=== PATIENT | male | born 1975 | race Caucasian/White ===

== ENCOUNTER 2023-08-12 20:39 | Emergency (ER) | payer SELFPAY ==
[2023-08-12 20:42] VITALS: BP 182/109; PULSE 127; RESP 22; TEMP 36.9; O2SAT 98; BMI 24.3
[2023-08-12 21:16] LABS: Add Manual Diff / Slide Review NO; Basophils Absolute Auto 100 /uL (0-100); Basophils Percent Auto 0.3 % (0-2); Eosinophils Absolute Auto 0 /uL (0-450); Eosinophils Percent Auto 0.1 % (2-4); Hematocrit 52.6 % (41-53); Hemoglobin 17.8 g/dL (13.5-17.5); Lymphocytes Absolute Auto 1800 /uL (1100-4500); Lymphocytes Percent Auto 8.6 % (25-40); Mean Corpuscular HGB Conc 33.8 % (30-36); Mean Corpuscular Hemoglobin 30.8 PG (26-34); Mean Corpuscular Volume 91.3 fL (80-100); Monocytes Absolute Auto 1100 /uL (0-900); Monocytes Percent Auto 5.3 % (3-14); Neutrophils Absolute Auto 18000 /uL (1500-7000); Neutrophils Percent Auto 85.7 % (50-75); Platelet Count 326 X10^3/uL (150-400); Red Blood Cell Count 5.76 X10^6/uL (4.5-5.9); Red Cell Distribution Width 14.1 % (11.6-14.8); White Blood Cell Count 20.9 X10^3/uL (4.5-11.0)
[2023-08-12 21:20] LABS: Alanine Aminotransferase 30 IU/L (<50); Albumin 5.7 g/dL (3.5-5.0); Alkaline Phosphatase 90 U/L (38-126); Aspartate Aminotransferase 41 IU/L (17-59); BUN Creatinine Ratio 9.6 (6-22); Bilirubin Total 1.5 mg/dL (0.2-1.3); Blood Urea Nitrogen 42 mg/dL (9-20); Carbon Dioxide 18 mmol/L (22-32); Chloride 100 mmol/L (98-107); Estimated Glomerular Filt Rate 16 mL/min (>60); Glucose 175 mg/dL (70-100); HEMOLYSIS < 15 (0-50); Lipase 77 U/L (23-300); Potassium 3.3 mmol/L (3.4-5.1); Sodium 138 mmol/L (137-145)
[2023-08-12 21:27] LABS: Albumin Globulin Ratio 1.2 (1.0-2.8); Globulin 4.8 g/dL (1.7-4.1); Total Protein 10.5 g/dL (6.3-8.2)
[2023-08-12 22:01] VITALS: BP 193/98; PULSE 110; RESP 19; O2SAT 98
[2023-08-12] MEDS: ONDANSETRON 4 MG/2 ML INJ IV (22:13)
[2023-08-12] MEDS: SODIUM CHLORIDE 0.9% 1,000 ML 1000 ML IV (22:18)
--- NOTE | 2023-08-12 22:18 | DI.CT.S_ITS ---
PROCEDURE: CT ABDOMEN PELVIS WO CON INDICATIONS: vomiting hernia TECHNIQUE: Axial sections were acquired from the lung bases to the pubic symphysis. Coronal and sagittal reformats were performed. For radiation dose reduction, the following was used: automated exposure control, adjustment of mA and/or kV according to patient size. COMPARISON: None. FINDINGS: Image quality: Diagnostic Lower chest: Unremarkable. possible small Bochdalek's containing hernias. Mildly patulous distal esophagus is nonspecific Liver: No contour deforming mass. Lack of IV contrast limits evaluation of the solid organs Gallbladder and biliary system: Unremarkable, nondilated Pancreas: No ductal dilation Spleen: Nonenlarged Adrenals: No discrete nodules Kidneys: No contour deforming mass or hydronephrosis. No obstructing calcified stone. Vessels and lymph nodes: No abdominal aortic aneurysm. No pathologic lymph nodes by size criteria. Bowel and peritoneum: No evidence of small bowel obstruction. No pathologic ascites. Body wall: Qwhn-[id number] bilateral fat containing inguinal hernias, with no obstructed bowel seen currently Pelvis: Bladder is under distended and not well evaluated. The prostate is also not well evaluated on this study Bones: No acute or suspicious osseous findings. There are degenerative changes. IMPRESSION: Bilateral fat containing inguinal hernias, no obstructive bowel is seen on this non dynamic study. Other findings above. Dictated by: Jose L Garcia M.D. on 08/12/2023 at 23:19 Approved by: Jose L Garcia M.D. on 08/12/2023 at 23:22
[2023-08-12 22:32] LABS: Lactate (Lactic Acid) 2.1 mmol/L (0.7-2.1)
--- NOTE | 2023-08-12 22:39 | ED_ITS ---
HPI - Nausea/Vomiting/Diarrhea General Chief complaint: Nausea/Vomiting/Diarrhea Stated complaint: N/V T-2/states enlarged hernia Time Seen by Provider: 08/12/23 22:18 Source: patient Mode of arrival: Ambulatory History of Present Illness HPI Narrative: Patient is a 48-year-old male without significant past known history presenting today with nausea vomiting. He reports that he threw up most day yesterday. He did feel like he had a right inguinal hernias at pops out when she is able to push back in. He has had significant decrease in urination. He does admit to doing cocaine and mushrooms. He admits to drinking alcohol but does not drink daily only drinks occasionally on the weekends. He reports that he went on a hike and did some mushrooms which again is not abnormal for him. He denies any sort of chest pain but has burning. No palpitations. He does have pretty significant abdominal pain. Related Data Allergies Allergy/AdvReac Type Severity Reaction Status Date / Time No Known Drug Allergies Allergy Verified 08/12/23 20:49 Patient History Social History Smoking Status: Current every day smoker Smoking Status: Current every day smoker tobacco type: cigarettes alcohol intake frequency: 0-2 drinks per day Substance Use Type: marijuana Exam Initial Vital Signs Initial Vital Signs: Vital Signs Temperature 98.5 F 08/12/23 20:42 Pulse Rate 127 H 08/12/23 20:42 Respiratory Rate 22 08/12/23 20:42 Blood Pressure 182/109 H 08/12/23 20:42 Pulse Oximetry 98 08/12/23 20:42 Oxygen Delivery Method Room Air 08/12/23 20:42 GENERAL: Alert 48-year-old male appears to not feel well and in [no acute] distress. HEENT: Head atraumatic,EOMI, pupils reactive, face symmetric, [moist] mucous membranes CARDIOVASCULAR: Regular rate and rhythm without murmurs, rubs or gallops. RESPIRATORY: Breath sounds equal bilaterally, no wheezes rales or rhonchi. ABDOMEN: Soft, nontender. Normoactive bowel sounds all 4 quadrants. No guarding or rebound. Right inguinal hernia reducible EXTREMITIES: Normal range of motion, no clubbing or edema. Neurovascularly intact NEUROLOGICAL: Alert and oriented x4.Normal gait and speech. Cranial nerves II through XII grossly intact. SKIN: Warm, dry, no laceration, no petechiae, no rashes or lesions. Course Orders Ordered: ED Orders 08/12/23 22:47 Urine Drug Screen, Rapid Stat EKG-12 Lead Stat 08/12/23 23:40 BMP [Basic Metabolic Panel] Stat PTT Partial Thromboplastin Jim Q6H Troponin & CK Cardiac Panel Stat 08/13/23 00:38 EKG-12 Lead Stat 08/13/23 02:56 Ictotest Urine Stat Urine Microscopic Stat 08/13/23 06:01 CMP [Comprehensive Metabolic Panel] Stat Hemoglobin and Hematocrit DAILY PTT Partial Thromboplastin Jim Q6H Platelet Count DAILY Troponin & CK Cardiac Panel Stat 08/13/23 06:23 Chest [XR chest 1V] Stat 08/13/23 11:30 PTT Partial Thromboplastin Jim Q6H 08/13/23 17:30 PTT Partial Thromboplastin Jim Q6H 08/14/23 05:00 Hemoglobin and Hematocrit DAILY Platelet Count DAILY Hydromorphone HCl (Hydromorphone 1 Mg Inj) 1 mg IV Q2HR PRN PRN Reason: Pain, Moderate (4-6) Last Admin: 08/13/23 07:15 Dose: 1 mg Documented By: Admin: 08/13/23 02:59 Dose: 1 mg Documented By: JOHN Heparin Sodium/Dextrose (Heparin Drip) 25,000 unit in 500 mls @ 17.418 mls/hr IV CONT KIERA; Protocol Last Titration: 08/13/23 06:57 Dose: 13 units/kg/hr, 18.87 mls/hr Documented By: JOHN Co-signed By: AB Admin: 08/12/23 23:56 Dose: 12 units/kg/hr, 17.418 mls/hr Documented By: JOHN Co-signed By: Sodium Chloride (Normal Saline 0.9%) 1,000 mls @ 150 mls/hr IV CONT KIERA Last Infusion: 08/13/23 06:45 Dose: Infused Documented By: Admin: 08/12/23 23:56 Dose: 150 mls/hr Documented By: JOHN Sodium Chloride (Normal Saline 0.9%) 1,000 mls @ 150 mls/hr IV CONT KIERA Last Admin: 08/13/23 07:10 Dose: 150 mls/hr Documented By: JOHN Nitroglycerin (Nitroglycerin 0.4 Mg Sl Tab) 0.4 mg SL [id number] PRN PRN Reason: Chest Pain Last Admin: 08/13/23 03:06 Dose: 0.4 mg Documented By: Admin: 08/13/23 02:36 Dose: 0.4 mg Documented By: Ondansetron HCl (Ondansetron 4 Mg/2 Ml Inj) 4 mg IV NOW PRN PRN Reason: Nausea And Vomiting Last Admin: 08/12/23 22:13 Dose: 4 mg Documented By: SYEDA Ondansetron HCl (Ondansetron 4 Mg Odt) 4 mg PO NOW PRN PRN Reason: Nausea And Vomiting Last Admin: 08/13/23 07:15 Dose: 4 mg Documented By: JOHN Discontinued Medications Aspirin (Aspirin 81 Mg Chew Tab) 324 mg PO NOW ONE Stop: 08/12/23 23:26 Last Admin: 08/12/23 23:55 Dose: 324 mg Documented By: JOHN Heparin Sodium (Porcine) (Heparin 5,000 Unit/Ml Vial) 4,500 unit 60 unit/kg (4500 unit) IV NOW ONE Stop: 08/12/23 23:26 Last Admin: 08/12/23 23:56 Dose: 4,500 unit Documented By: JOHN Heparin Sodium (Porcine) (Heparin 5,000 Unit/Ml Vial) 2,500 unit IV NOW ONE Stop: 08/13/23 06:52 Last Admin: 08/13/23 06:56 Dose: 2,500 unit Documented By: JOHN Hydromorphone HCl (Hydromorphone 0.5 Mg Inj) 0.5 mg IV NOW ONE Stop: 08/12/23 22:48 Last Admin: 08/12/23 23:09 Dose: 0.5 mg Documented By: JOHN Hydromorphone HCl (Hydromorphone 1 Mg Inj) 1 mg IV NOW ONE Stop: 08/13/23 07:03 Last Admin: 08/13/23 07:04 Dose: Not Given Documented By: JOHN Sodium Chloride (Normal Saline 0.9%) 1,000 mls @ 1,000 mls/hr IV BOLUS ONE Stop: 08/12/23 23:16 Last Infusion: 08/12/23 23:18 Dose: Infused Documented By: Admin: 08/12/23 22:18 Dose: 1,000 mls/hr Documented By: SYEDA Pantoprazole Sodium (Pantoprazole 40 Mg Vial) 40 mg IV NOW ONE Stop: 08/12/23 22:48 Last Admin: 08/12/23 23:09 Dose: 40 mg Documented By: JOHN Vital Signs Vital signs: Vital Signs - 8 hr 08/12/23 23:30 08/12/23 23:31 08/12/23 23:31 Pulse Rate 88 98 H Respiratory Rate 16 20 Blood Pressure 182/105 H Pulse Oximetry 96 96 Oxygen Delivery Method 08/13/23 00:00 08/13/23 00:00 08/13/23 00:30 Pulse Rate 86 Respiratory Rate 32 H Blood Pressure 195/105 H 188/118 H Pulse Oximetry 95 Oxygen Delivery Method 08/13/23 00:30 08/13/23 01:00 08/13/23 01:00 Pulse Rate 74 78 Respiratory Rate 28 H 29 H Blood Pressure 191/91 H Pulse Oximetry 96 95 Oxygen Delivery Method 08/13/23 01:30 08/13/23 01:30 08/13/23 02:00 Pulse Rate 85 81 Respiratory Rate 35 H 22 Blood Pressure 197/118 H Pulse Oximetry 97 94 Oxygen Delivery Method 08/13/23 02:00 08/13/23 02:30 08/13/23 02:31 Pulse Rate 92 H Respiratory Rate 16 Blood Pressure 188/95 H 258/129 H Pulse Oximetry 97 Oxygen Delivery Method 08/13/23 02:31 08/13/23 02:36 08/13/23 02:56 Pulse Rate 96 H 87 Respiratory Rate 24 Blood Pressure 258/129 H 262/152 H Pulse Oximetry 97 Oxygen Delivery Method 08/13/23 02:56 08/13/23 03:00 08/13/23 03:00 Pulse Rate 89 88 Respiratory Rate 13 17 Blood Pressure 259/145 H Pulse Oximetry 99 98 Oxygen Delivery Method 08/13/23 03:06 08/13/23 03:12 08/13/23 03:12 Pulse Rate 81 85 Respiratory Rate 12 Blood Pressure 259/145 H 217/111 H Pulse Oximetry 95 Oxygen Delivery Method Room Air 08/13/23 03:15 08/13/23 03:15 08/13/23 03:20 Pulse Rate 75 Respiratory Rate 32 H Blood Pressure 221/103 H 169/84 H Pulse Oximetry 91 Oxygen Delivery Method 08/13/23 03:20 08/13/23 03:25 08/13/23 03:25 Pulse Rate 87 85 Respiratory Rate 18 21 Blood Pressure 163/82 H Pulse Oximetry 94 96 Oxygen Delivery Method 08/13/23 03:30 08/13/23 03:30 08/13/23 03:35 Pulse Rate 71 Respiratory Rate 25 H Blood Pressure 166/77 H 169/79 H Pulse Oximetry 95 Oxygen Delivery Method 08/13/23 03:35 08/13/23 03:40 08/13/23 03:40 Pulse Rate 67 69 Respiratory Rate 30 H 29 H Blood Pressure 152/74 H Pulse Oximetry 94 95 Oxygen Delivery Method 08/13/23 03:45 08/13/23 03:45 08/13/23 03:50 Pulse Rate 69 76 Respiratory Rate 31 H 29 H Blood Pressure 155/80 H Pulse Oximetry 95 95 Oxygen Delivery Method 08/13/23 03:50 08/13/23 03:55 08/13/23 03:55 Pulse Rate 67 Respiratory Rate 30 H Blood Pressure 153/77 H 166/80 H Pulse Oximetry 96 Oxygen Delivery Method 08/13/23 04:00 08/13/23 04:00 08/13/23 04:05 Pulse Rate 63 71 Respiratory Rate 32 H 25 H Blood Pressure 141/75 H Pulse Oximetry 96 96 Oxygen Delivery Method 08/13/23 04:05 08/13/23 04:10 08/13/23 04:10 Pulse Rate 66 Respiratory Rate 32 H Blood Pressure 141/80 H 152/81 H Pulse Oximetry 95 Oxygen Delivery Method 08/13/23 04:15 08/13/23 04:15 08/13/23 04:20 Pulse Rate 66 68 Respiratory Rate 24 25 H Blood Pressure 150/79 H Pulse Oximetry 96 96 Oxygen Delivery Method 08/13/23 04:20 08/13/23 04:25 08/13/23 04:25 Pulse Rate 67 Respiratory Rate 26 H Blood Pressure 156/86 H 164/85 H Pulse Oximetry 95 Oxygen Delivery Method 08/13/23 04:30 08/13/23 04:30 08/13/23 04:35 Pulse Rate 74 Respiratory Rate 19 Blood Pressure 166/90 H 156/82 H Pulse Oximetry 95 Oxygen Delivery Method 08/13/23 04:35 08/13/23 04:40 08/13/23 04:40 Pulse Rate 64 62 Respiratory Rate 31 H 34 H Blood Pressure 151/81 H Pulse Oximetry 96 95 Oxygen Delivery Method 08/13/23 04:45 08/13/23 04:45 08/13/23 04:50 Pulse Rate 74 Respiratory Rate Blood Pressure 173/91 H 159/81 H Pulse Oximetry 95 Oxygen Delivery Method 08/13/23 04:50 08/13/23 04:55 08/13/23 04:55 Pulse Rate 56 L 55 L Respiratory Rate 42 H 29 H Blood Pressure 167/84 H Pulse Oximetry 96 96 Oxygen Delivery Method 08/13/23 05:00 08/13/23 05:00 08/13/23 05:05 Pulse Rate 57 L Respiratory Rate 31 H Blood Pressure 164/89 H 162/81 H Pulse Oximetry 96 Oxygen Delivery Method 08/13/23 05:05 08/13/23 05:10 08/13/23 05:10 Pulse Rate 59 L 58 L Respiratory Rate 26 H 32 H Blood Pressure 161/84 H Pulse Oximetry 96 96 Oxygen Delivery Method 08/13/23 05:15 08/13/23 05:15 08/13/23 05:21 Pulse Rate 57 L Respiratory Rate 24 Blood Pressure 169/92 H 152/84 H Pulse Oximetry 96 Oxygen Delivery Method 08/13/23 05:21 08/13/23 05:25 08/13/23 05:25 Pulse Rate 53 L 55 L Respiratory Rate 31 H 31 H Blood Pressure 155/86 H Pulse Oximetry 96 96 Oxygen Delivery Method 08/13/23 05:30 08/13/23 05:30 08/13/23 05:35 Pulse Rate 54 L Respiratory Rate 36 H Blood Pressure 166/87 H 181/92 H Pulse Oximetry 96 Oxygen Delivery Method 08/13/23 05:35 08/13/23 05:40 08/13/23 05:40 Pulse Rate 61 55 L Respiratory Rate 25 H 41 H Blood Pressure 159/82 H Pulse Oximetry 95 96 Oxygen Delivery Method 08/13/23 05:46 08/13/23 05:46 08/13/23 05:50 Pulse Rate 59 L Respiratory Rate 28 H Blood Pressure 169/86 H 160/102 H Pulse Oximetry 96 Oxygen Delivery Method 08/13/23 05:50 08/13/23 05:55 08/13/23 05:55 Pulse Rate 69 61 Respiratory Rate 24 36 H Blood Pressure 182/91 H Pulse Oximetry 96 96 Oxygen Delivery Method 08/13/23 06:00 08/13/23 06:00 08/13/23 06:05 Pulse Rate 57 L Respiratory Rate 38 H Blood Pressure 190/99 H 199/99 H Pulse Oximetry 96 Oxygen Delivery Method 08/13/23 06:05 08/13/23 06:10 08/13/23 06:10 Pulse Rate 65 73 Respiratory Rate 32 H 32 H Blood Pressure 205/103 H Pulse Oximetry 98 97 Oxygen Delivery Method 08/13/23 06:15 08/13/23 06:15 08/13/23 06:20 Pulse Rate 58 L Respiratory Rate 17 Blood Pressure 200/95 H 209/102 H Pulse Oximetry 97 Oxygen Delivery Method 08/13/23 06:20 08/13/23 06:25 08/13/23 06:25 Pulse Rate 76 60 Respiratory Rate 31 H 22 Blood Pressure 207/115 H Pulse Oximetry 98 98 Oxygen Delivery Method 08/13/23 06:30 08/13/23 06:30 08/13/23 06:35 Pulse Rate 65 Respiratory Rate 15 Blood Pressure 211/98 H 227/117 H Pulse Oximetry 98 Oxygen Delivery Method 08/13/23 06:35 08/13/23 06:40 08/13/23 06:40 Pulse Rate 61 66 Respiratory Rate 28 H 16 Blood Pressure 207/96 H Pulse Oximetry 95 96 Oxygen Delivery Method 08/13/23 06:45 08/13/23 06:45 08/13/23 06:50 Pulse Rate 76 Respiratory Rate 35 H Blood Pressure 195/102 H 206/99 H Pulse Oximetry 97 Oxygen Delivery Method 08/13/23 06:50 08/13/23 06:55 08/13/23 06:55 Pulse Rate 65 78 Respiratory Rate 34 H 28 H Blood Pressure 200/108 H Pulse Oximetry 97 97 Oxygen Delivery Method 08/13/23 07:00 08/13/23 07:00 Pulse Rate 63 Respiratory Rate 38 H Blood Pressure 199/111 H Pulse Oximetry 98 Oxygen Delivery Method MDM - Nausea/Vomiting/Diarrhea Lab Data 08/13/23 06:01 08/13/23 06:01 Labs: Lab Results 08/12/23 08/12/23 08/12/23 Range/Units 21:00 21:07 23:40 WBC 20.9 H (4.5-11.0) X10^3/uL RBC 5.76 (4.5-5.9) X10^6/uL Hgb 17.8 H (13.5-17.5) g/dL Hct 52.6 (41-53) % MCV 91.3 (80-100) fL MCH 30.8 (26-34) PG MCHC 33.8 (30-36) % RDW 14.1 (11.6-14.8) % Plt Count 326 (150-400) X10^3/uL Neut % (Auto) 85.7 H (50-75) % Lymph % (Auto) 8.6 L (25-40) % [place] % (Auto) 5.3 (3-14) % Eos % (Auto) 0.1 L (2-4) % Baso % (Auto) 0.3 (0-2) % Neut # (Auto) 54033 H (9640-3949) /uL Lymph # (Auto) 1800 (7296-2161) /uL [place] # (Auto) 1100 H (0-900) /uL Eos # (Auto) 0 (0-450) /uL Baso # (Auto) 100 (0-100) /uL APTT 35 (25.1-36.5) SECONDS Sodium 138 138 (137-145) mmol/L Potassium 3.3 L 3.4 (3.4-5.1) mmol/L Chloride 100 105 (98-107) mmol/L Carbon Dioxide 18 L 17 L (22-32) mmol/L BUN 42 H 43 H (9-20) mg/dL Creatinine 4.36 H 3.88 H (0.66-1.25) mg/dL Estimated GFR 16 L 18 L (>60) mL/min BUN/Creatinine Ratio 9.6 11.1 (6-22) Glucose 175 H 143 H (70-100) mg/dL Lactate 2.1 1.6 (0.7-2.1) mmol/L Calcium 11.0 H 9.6 (8.4-10.2) mg/dL Total Bilirubin 1.5 H (0.2-1.3) mg/dL AST 41 (17-59) IU/L ALT 30 (<50) IU/L Alkaline Phosphatase 90 (38-126) U/L Total Creatine Kinase 801 H 791 H (55-170) U/L Troponin I 1.130 H* 0.942 H* (0.01-0.034) ng/mL Total Protein 10.5 H (6.3-8.2) g/dL Albumin 5.7 H (3.5-5.0) g/dL Globulin 4.8 H (1.7-4.1) g/dL Albumin/Globulin Ratio 1.2 (1.0-2.8) Lipase 77 (23-300) U/L Procalcitonin 0.292 (<0.5) ng/mL Ur Bilirubin Confirm (Negative) Urine RBC (0-5/HPF) Urine WBC (0-5/HPF) Ur Squamous Epith Cells (0-5/HPF) Amorphous Sediment Urine Bacteria (None) Hyaline Casts (None) Ur Culture Indicated? Vol Urine Centrifuged U Opiates 300ng/mL cut (Negative) Ur Oxycodone Screen (Negative) Urine Methadone Screen (Negative) Ur Barbiturates Screen (Negative) U Tricyclic Antidepress (Negative) Ur Phencyclidine Scrn (Negative) Ur Amphetamines Screen (Negative) U Methamphetamines Scrn (Negative) Ur MDMA Scrn (Ecstasy) (Negative) U Benzodiazepines Scrn (Negative) Urine Cocaine Screen (Negative) U Marijuana (THC) Screen (Negative) Urine pH (Normal) Urine Specific Lane (Normal) Ur Creatinine (Normal) 08/13/23 08/13/23 Range/Units 02:56 06:01 WBC (4.5-11.0) X10^3/uL RBC (4.5-5.9) X10^6/uL Hgb 15.0 (13.5-17.5) g/dL Hct 44.6 (41-53) % MCV (80-100) fL MCH (26-34) PG MCHC (30-36) % RDW (11.6-14.8) % Plt Count 242 (150-400) X10^3/uL Neut % (Auto) (50-75) % Lymph % (Auto) (25-40) % [place] % (Auto) (3-14) % Eos % (Auto) (2-4) % Baso % (Auto) (0-2) % Neut # (Auto) (2247-4028) /uL Lymph # (Auto) (1408-7374) /uL [place] # (Auto) (0-900) /uL Eos # (Auto) (0-450) /uL Baso # (Auto) (0-100) /uL APTT 45 H D (25.1-36.5) SECONDS Sodium 137 (137-145) mmol/L Potassium 3.8 (3.4-5.1) mmol/L Chloride 107 (98-107) mmol/L Carbon Dioxide 19 L (22-32) mmol/L BUN 45 H (9-20) mg/dL Creatinine 3.28 H (0.66-1.25) mg/dL Estimated GFR 22 L (>60) mL/min BUN/Creatinine Ratio 13.7 (6-22) Glucose 124 H (70-100) mg/dL Lactate (0.7-2.1) mmol/L Calcium 8.7 (8.4-10.2) mg/dL Total Bilirubin 0.9 (0.2-1.3) mg/dL AST 33 (17-59) IU/L ALT 20 (<50) IU/L Alkaline Phosphatase 63 (38-126) U/L Total Creatine Kinase 715 H (55-170) U/L Troponin I 1.040 H* (0.01-0.034) ng/mL Total Protein 7.7 (6.3-8.2) g/dL Albumin 4.5 (3.5-5.0) g/dL Globulin 3.2 (1.7-4.1) g/dL Albumin/Globulin Ratio 1.4 (1.0-2.8) Lipase (23-300) U/L Procalcitonin (<0.5) ng/mL Ur Bilirubin Confirm Negative (Negative) Urine RBC 1-5/hpf (0-5/HPF) Urine WBC None seen (0-5/HPF) Ur Squamous Epith Cells 1-5 /hpf (0-5/HPF) Amorphous Sediment 1+ Urine Bacteria None seen (None) Hyaline Casts 1-5/lpf (None) Ur Culture Indicated? Cult not indicated Vol Urine Centrifuged 10ml (spun) U Opiates 300ng/mL cut Negative (Negative) Ur Oxycodone Screen Negative (Negative) Urine Methadone Screen Negative (Negative) Ur Barbiturates Screen Negative (Negative) U Tricyclic Antidepress Negative (Negative) Ur Phencyclidine Scrn Negative (Negative) Ur Amphetamines Screen Negative (Negative) U Methamphetamines Scrn Negative (Negative) Ur MDMA Scrn (Ecstasy) Negative (Negative) U Benzodiazepines Scrn Negative (Negative) Urine Cocaine Screen Negative (Negative) U Marijuana (THC) Screen Positive H (Negative) Urine pH Normal (Normal) Urine Specific Lane Normal (Normal) Ur Creatinine Normal (Normal) Urine Dip Bedside Urine Glucose Negative Bedside Urine Bilirubin + 1 Bedside Urine Ketone +/- [address] 1.030 Bedside Urine Occult Blood ++ Bedside Urine pH 5.0 Bedside Urine Protein +++ 300 Bedside Urine Urobilinogen - Negative Bedside Urine Nitrite - Negative Bedside Urine Leukocytes - Negative Esterase Imaging Data CT scan - abdomen/pelvis: Radiologist's Impression: PROCEDURE: CT ABDOMEN PELVIS WO CON INDICATIONS: vomiting hernia TECHNIQUE: Axial sections were acquired from the lung bases to the pubic symphysis. Coronal and sagittal reformats were performed. For radiation dose reduction, the following was used: automated exposure control, adjustment of mA and/or kV according to patient size. COMPARISON: None. FINDINGS: Image quality: Diagnostic Lower chest: Unremarkable. possible small Bochdalek's containing hernias. Mildly patulous distal esophagus is nonspecific Liver: No contour deforming mass. Lack of IV contrast limits evaluation of the solid organs Gallbladder and biliary system: Unremarkable, nondilated Pancreas: No ductal dilation Spleen: Nonenlarged Adrenals: No discrete nodules Kidneys: No contour deforming mass or hydronephrosis. No obstructing calcified stone. Vessels and lymph nodes: No abdominal aortic aneurysm. No pathologic lymph nodes by size criteria. Bowel and peritoneum: No evidence of small bowel obstruction. No pathologic ascites. Body wall: [id number] bilateral fat containing inguinal hernias, with no obstructed bowel seen currently Pelvis: Bladder is under distended and not well evaluated. The prostate is also not well evaluated on this study Bones: No acute or suspicious osseous findings. There are degenerative changes. IMPRESSION: Bilateral fat containing inguinal hernias, no obstructive bowel is seen on this non dynamic study. Other findings above. Dictated by: Jose L Garcia M.D. on 08/12/2023 at 23:19 Chest x-ray: Radiologist's Impression: No acute cardiopulmonary process ECG Data Attestation: I personally reviewed and interpreted this ECG as follows: Interpretation: Normal sinus rhythm rate 77 IL interval 134 QRS 96 QTC 441 biphasic T-wave in T- wave inversion noted in V3 possibly V2 as well but definitely more pronounced in V3 no priors to compare EKG 2. Sinus breath rate 77 persistent T-wave inversion in V3 V2 no T-wave inversion but T-wave inversion noted in V4 V5 and V6 no ST elevation MDM Narrative Medical decision making narrative: MDM CC: Nausea vomiting abdominal Complicating co-morbidities: Polysubstance use including mushrooms and cocaine Corroborating data: [ ] Data collected from: Medical records reviewed: None to review Differential considered: Bowel obstruction, acute coronary syndrome Exam documented above, pertinent findings include: Abdomen is soft although he appears uncomfortable, he does right inguinal hernia but it is soft and reducible no concern for incarcerated hernia Lab Test results independently reviewed as above. Pertinent findings: WBC 20.9, hemoglobin 17.8, hematocrit 52.6, platelets 326, Creatinine elevated 4.3, with repeat 3.8 and again at 3.2, troponin elevated at 1.1 --> 0.942-->1.04 mild elevation in CPK at 800, lactate 2.1 with repeat 1.6 Blood cultures pending Independently reviewed EKG as above: T-wave inversions noted in precordial leads concern possible Wellens sign in the free no priors Imaging studies independently reviewed: Chest x-ray reviewed by myself no acute cardiopulmonary process. CT does not show any bowel obstruction or renal issue Consultations: [id number] Dr. Saurabh villalobos accepts patient Treatments: Patient initially given IV fluids, Dilaudid and Zofran later given aspirin heparin and nitroglycerin Re-evaluations: Patient does complain of burning in his chest which he associates with acid reflux however based on patient's troponin and EKG it may actually be cardiac in nature he is given nitroglycerin and Dilaudid which seemed to help significantly Discussion: Patient presents today with nausea vomiting found to be in acute renal failure with a creatinine of 4.3. Thought to be secondary to dehydration. Creatinine is improving with IV fluids and he has urine it. He is noted to have a significantly elevated troponin of 1.1 with a T-wave inversion and recent cocaine use. Patient is having some chest burning sensation which maybe chest pain but is resolved with nitroglycerin. Dilaudid seems to help his pain the most. Troponin may be elevated secondary to acute kidney injury, however cutoff [facility] 0.12, so there is significant elevation of troponin of 1.1. Troponin continues to be elevated despite improving renal function Critical Care Time Critical Care Time Critical Care Time: Yes Total Critical Care Time: 63 Attestation: The high probability of a clinically significant, sudden or life threatening deterioration of the [cardiovascular] system(s) required my full and direct attention, intervention and personal management. The aggregate critical care time was 63 minutes. This time is in addition to time spent performing reported procedures but includes the following: [x] Data Review and interpretation [x] Patient assessment and monitoring of vital signs [x] Documentation [x] Medication orders and management Discharge Plan Departure Patient Disposition: [facility] Clinical Impression: Acute non-ST elevation myocardial infarction (NSTEMI), Acute kidney failure
[2023-08-12 23:01] VITALS: PULSE 87; RESP 17; O2SAT 98
[2023-08-12 23:05] LABS: Creatine Kinase 801 U/L (55-170)
[2023-08-12 23:06] LABS: Procalcitonin 0.292 ng/mL (<0.5)
[2023-08-12] MEDS: HYDROMORPHONE 0.5 MG INJ IV (23:09)
[2023-08-12] MEDS: PANTOPRAZOLE 40 MG VIAL IV (23:09)
[2023-08-12 23:10] VITALS: BP 240/128; PULSE 93; RESP 18; O2SAT 98
--- NOTE | 2023-08-12 23:28 | EKG_ITS ---
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
[2023-08-12 23:30] VITALS: PULSE 88; RESP 16; O2SAT 96
[2023-08-12 23:31] VITALS: BP 182/105; PULSE 98; RESP 20; O2SAT 96
[2023-08-12] MEDS: ASPIRIN 81 MG CHEW TAB 324 MG PO (23:55)
[2023-08-12] MEDS: HEPARIN 5,000 UNIT/ML VIAL 4500 UNIT IV (23:56)
[2023-08-12] MEDS: SODIUM CHLORIDE 0.9% 1,000 ML 150 ML IV (23:56)
[2023-08-12] MEDS: HEPARIN DRIP 25,000 UNIT/500 ML IV.SOLN 17.418 UNIT IV (23:56)
[2023-08-13] VITALS (58 sets, daily range): BP systolic 141–262; BP diastolic 74–152; PULSE 53–96; RESP 12–42; O2SAT 91–99
[2023-08-13] LABS: Reflexed Lactate in 2 Hours Y
[2023-08-13 00:01] LABS: PTT Partial Thromboplastin Tim 35 SECONDS (25.1-36.5)
[2023-08-13 00:16] LABS: BUN Creatinine Ratio 11.1 (6-22); Blood Urea Nitrogen 43 mg/dL (9-20); Calcium 9.6 mg/dL (8.4-10.2); Carbon Dioxide 17 mmol/L (22-32); Chloride 105 mmol/L (98-107); Creatine Kinase 791 U/L (55-170); Estimated Glomerular Filt Rate 18 mL/min (>60); Glucose 143 mg/dL (70-100); HEMOLYSIS < 15 (0-50); Potassium 3.4 mmol/L (3.4-5.1); Sodium 138 mmol/L (137-145)
[2023-08-13 00:33] LABS: Troponin I 0.942 ng/mL (0.01-0.034)
[2023-08-13 00:38] LABS: Lactate 2HR (Lactic Acid Rflx) 1.6 mmol/L (0.7-2.1)
--- NOTE | 2023-08-13 00:40 | EKG_ITS ---
[place] [id number] [place] [id number] Test Date: 2023-08-13 Pat Name: Kapil Muñoz Department: Room: Gender: Male [employer] Operator: KATHERYN : 1975 Requested By: Order Number: [id number] Reading MD: Froilan Lopez Measurements Intervals Greig Rate: 77 P: 73 UT: 142 QRS: 21 QRSD: 88 T: -51 QT: 400 QTc: 452 Interpretive Statements Sinus rhythm with marked sinus arrhythmia with occasional premature ventricular complexes Right atrial enlargement Moderate voltage criteria for LVH, may be normal variant ( Sokolow-Perez , [place] product ) ST & T wave abnormality, consider inferior ischemia ST & T wave abnormality, consider anterolateral ischemia Electronically Signed On 08-13-2023 18:26:20 PDT by Froilan Lopez
[2023-08-13] MEDS: NITROGLYCERIN 0.4 MG SL TAB SL ×2 (02:36→03:06)
[2023-08-13] MEDS: HYDROMORPHONE 1 MG INJ IV ×2 (02:59→07:15)
[2023-08-13 03:16] LABS: UR Morphine/Opiate cutoff 300 Negative (Negative); Ur Creatinine Normal (Normal); Ur Specific Gravity Normal (Normal); Urine Amphetamines Negative (Negative); Urine Barbiturates Negative (Negative); Urine Benzodiazepines Negative (Negative); Urine Cocaine Negative (Negative); Urine MDMA Negative (Negative); Urine Methadone Negative (Negative); Urine Methamphetamines Negative (Negative); Urine Phencyclidine Negative (Negative); Urine Tetrahydrocannabinol Positive (Negative); Urine pH Normal (Normal)
[2023-08-13 03:17] LABS: Urine Oxycodone Negative (Negative); Urine Tricyclic Antidepressant Negative (Negative)
[2023-08-13 03:20] LABS: Bacteria Urine None Seen; RBC Urine 1-5/HPF (0-5/HPF); Squamous Epithelial Cell Urine 1-5 /HPF (0-5/HPF); Urine Volume 10mL (spun); WBC Urine None Seen (0-5/HPF)
[2023-08-13 03:21] LABS: Amorphous Sediment Urine 1+; Culture Indicated Urine Cult Not Indicated; Hyaline Casts Urine 1-5/LPF; Ictotest Urine Negative (Negative)
[2023-08-13 06:08] LABS: Hematocrit 44.6 % (41-53); Platelet Count 242 X10^3/uL (150-400)
[2023-08-13 06:22] LABS: PTT Partial Thromboplastin Tim 45 SECONDS (25.1-36.5)
[2023-08-13 06:23] LABS: Alanine Aminotransferase 20 IU/L (<50); Albumin 4.5 g/dL (3.5-5.0); Albumin Globulin Ratio 1.4 (1.0-2.8); Alkaline Phosphatase 63 U/L (38-126); Aspartate Aminotransferase 33 IU/L (17-59); BUN Creatinine Ratio 13.7 (6-22); Bilirubin Total 0.9 mg/dL (0.2-1.3); Blood Urea Nitrogen 45 mg/dL (9-20); Calcium 8.7 mg/dL (8.4-10.2); Carbon Dioxide 19 mmol/L (22-32); Chloride 107 mmol/L (98-107); Creatine Kinase 715 U/L (55-170); Estimated Glomerular Filt Rate 22 mL/min (>60); Globulin 3.2 g/dL (1.7-4.1); Glucose 124 mg/dL (70-100); HEMOLYSIS < 15 (0-50); Potassium 3.8 mmol/L (3.4-5.1); Sodium 137 mmol/L (137-145); Total Protein 7.7 g/dL (6.3-8.2)
--- NOTE | 2023-08-13 06:23 | DI.RAD.S_ITS ---
PROCEDURE: XR CHEST 1V INDICATIONS: Nstemi TECHNIQUE: One view of the chest was acquired. COMPARISON: None. FINDINGS: Surgical changes and devices: None. Lungs and pleura: Lungs are clear. No pleural effusions or pneumothorax. Mediastinum: Mediastinal contours appear normal. Heart size is normal. Bones and chest wall: No suspicious bony lesions. Overlying soft tissues appear unremarkable. IMPRESSION: No acute pulmonary process. Dictated by: Pennie Brice M.D. on 08/13/2023 at 7:24 Approved by: Pennie Brice M.D. on 08/13/2023 at 7:24
[2023-08-13] MEDS: HEPARIN 5,000 UNIT/ML VIAL 2500 UNIT IV (06:56)
[2023-08-13] MEDS: SODIUM CHLORIDE 0.9% 1,000 ML 150 ML IV (07:10)
[2023-08-13] MEDS: ONDANSETRON 4 MG ODT PO (07:15)
== END 2023-08-13 07:23 | disposition short-term general hospital (02) ==
PROVIDERS: Emergency Provider Emergency Medicine
DX: I21.4 Non-ST elevation (NSTEMI) myocardial infarction (principal); N17.9 Acute kidney failure, unspecified; K40.90 Unilateral inguinal hernia, without obstruction or gangrene, not specified as recurrent; F14.90 Cocaine use, unspecified, uncomplicated; F19.90 Other psychoactive substance use, unspecified, uncomplicated
CPT/HCPCS: 36415; 71045; 74176; 80048; 80053; 80305; 81003; 81015; 82550; 83605; 83690; 84145; 84484; 85014; 85018; 85025; 85049; 85730; 87040; 93005; 96361; 96365; 96366; 96375; 96376; 99284; C9113; J1170; J1644; J2405